=== PATIENT | male | born 1980 | race Caucasian/White ===

== ENCOUNTER 2016-05-25 17:54 | Emergency (ER) | payer OTHER | END 2016-05-25 19:40 | disposition left against medical advice (07) | LOC: ED 17:54 | DX: R10.9 Unspecified abdominal pain (principal); M54.9 Dorsalgia, unspecified; Z53.21 Procedure and treatment not carried out due to patient leaving prior to being seen by health care provider ==

== ENCOUNTER 2017-06-04 09:32 | Emergency (ER) | payer OTHER ==
[2017-06-04 10:23] LABS: Bilirubin,Urine NEG (Negative); Blood,Urine NEG (Negative); Color,Urine Yellow (Yellow); Protein,Urine <15 mg/dL mg/dL (Negative); Urobilinogen,Urine < 2.0 mg/dL (<2.0)
[2017-06-04 10:37] LABS: Basophils % (Auto) 0.4 % (0.0-1.8); Eosinophils # (Auto) 0.3 K/mm3 (0.0-0.4); Eosinophils % (Auto) 2.9 % (0.0-4.3); Hematocrit 46.8 % (35.5-45.6); Hemoglobin 16.4 gm/dl (11.8-15.2); Lymphocytes # (Auto) 2.8 K/mm3 (1.2-5.4); Lymphocytes % (Auto) 29.9 % (13.4-35.0); Mean Corpuscular HGB Conc 35 % (32-34); Mean Corpuscular Hemoglobin 31 pg (28-32); Mean Corpuscular Volume 87 fl (84-94); Monocytes # (Auto) 0.5 K/mm3 (0.0-0.8); Monocytes % (Auto) 5.7 % (0.0-7.3); Platelet Count 203 K/mm3 (140-440); Red Blood Count 5.36 M/mm3 (3.65-5.03)
[2017-06-04 10:58] LABS: Alanine Aminotransferase 76 units/L (7-56); Albumin 4.2 g/dL (3.9-5); BUN/Creatinine Ratio 11; Blood Urea Nitrogen 8 mg/dL (9-20); Calcium 9.4 mg/dL (8.4-10.2); Hemolysis Index 9; Lipase 222 units/L (13-60)
[2017-06-04] MEDS ORDERED: NACL 0.9% 1000 ML 1,000 ML IV ONE (11:10)
[2017-06-04] MEDS ORDERED: MORPHINE IV ONE (11:11)
[2017-06-04] MEDS ORDERED: ZOFRAN IV ONE (11:11)
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
[2017-06-04] MEDS ORDERED: NACL ONE (12:24)
--- NOTE | 2017-06-04 12:35 | Ultrasound Report ---
ULTRASOUND ABDOMEN LIMITED: TECHNIQUE: Transabdominal ultrasound with color Doppler interrogation. HISTORY: Abnormal liver function tests. COMPARISON: none. FINDINGS: LIVER: The liver is echogenic with attenuation of the ultrasound beam consistent with diffuse fatty infiltration. No obvious liver mass.. BILIARY SYSTEM: Normal. PANCREAS: Obscured. RIGHT KIDNEY: Normal. PROXIMAL AORTA: Normal. ASCITES: None. IMPRESSION: Hepatic steatosis.
--- NOTE | 2017-06-04 13:29 | Cat Scan Report ---
CT ABDOMEN PELVIS WITH CONTRAST: HISTORY: Epigastric pain. COMPARISON: none. TECHNIQUE: Helical CT in 1.25mm intervals following IV contrast. Sagittal and coronal reconstructions. FINDINGS: Lung bases: Normal. Liver: There is diffuse fatty infiltration of the liver parenchyma. No mass, surface nodularity or enlargement. Biliary system: Normal. Pancreas: Normal. Spleen: Normal. Kidneys/ureters/bladder: Normal. Adrenal glands: Normal. Aorta: Normal. Intestines: Normal. Appendix: Normal. Pelvic viscera: Normal. Ascites: None. Adenopathy: None. Musculoskeletal: Normal. IMPRESSION: No acute inflammatory process is identified. Hepatic steatosis.
[2017-06-04] MEDS ORDERED: NORCO 10/325 PO ONE (14:15)
[2017-06-04] MEDS ORDERED: ZOFRAN ODT PO ONE (14:15)
[2017-06-04] MEDS ORDERED: PEPCID PO ONE (14:16)
[2017-06-04] MEDS ORDERED: ALUM-MAG HYDROX-SIMETH 200-200-20MG/5ML PO ONE (14:16)
[2017-06-04] MEDS ORDERED: LIDOCAINE VISCOUS 2% PO ONE (14:16)
[2017-06-04 14:40] VITALS: BP 136/80
== END 2017-06-04 14:41 | disposition home or self-care (01) ==
LOC: ED 09:32
DX: R10.13 Epigastric pain (principal); R11.0 Nausea; M19.90 Unspecified osteoarthritis, unspecified site; F17.200 Nicotine dependence, unspecified, uncomplicated; G89.29 Other chronic pain; Z95.0 Presence of cardiac pacemaker
CPT/HCPCS: 36415; 74177; 76705; 80053; 81001; 82140; 82150; 83690; 84484; 85025; 87040; 93005; 93010; 96361; 96374; 96375; 99284; J2270; J2405; J7030; Q9967; Q0162

== ENCOUNTER 2018-04-12 20:43 | Emergency (ER) | payer OTHER ==
--- NOTE | 2018-04-12 21:05 | Emergency Department Report ---
Blank Doc - Documentation Documentation: 37 y.o. male presents to ER with left flank pain and BLE bruising x 1 week. Admits to urinary frequency and bilateral ankle pain with intermittent swelling Denies dysuria, penile discharge, or recent injury. Exam: CVA tenderness on left Labs ordered Fast Track for evaluation
[2018-04-12 21:43] LABS: Hematocrit 46.7 % (35.5-45.6); Hemoglobin 16.2 gm/dl (11.8-15.2); Mean Corpuscular HGB Conc 35 % (32-34); Mean Corpuscular Volume 87 fl (84-94); Platelet Count 218 K/mm3 (140-440); Red Blood Count 5.37 M/mm3 (3.65-5.03); Red Cell Distribution Width 13.4 % (13.2-15.2)
[2018-04-12 22:14] LABS: Bilirubin,Urine NEG (Negative); Blood,Urine NEG (Negative); Color,Urine Yellow (Yellow); Protein,Urine <15 mg/dL mg/dL (Negative); Urobilinogen,Urine < 2.0 mg/dL (<2.0)
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
[2018-04-13 01:19] VITALS: BP 130/82
== END 2018-04-13 01:18 | disposition home or self-care (01) ==
LOC: ED 20:43
DX: R10.9 Unspecified abdominal pain (principal); L03.116 Cellulitis of left lower limb; L03.115 Cellulitis of right lower limb; R35.0 Frequency of micturition; R39.15 Urgency of urination
CPT/HCPCS: 36415; 81001; 85027

== ENCOUNTER 2018-08-07 13:03 | Emergency (ER) | payer SELFPAY ==
--- NOTE | 2018-08-07 13:15 | Emergency Department Report ---
Blank Doc - Documentation Documentation: This is a 38-year-old male that presents with upper abdominal pain with radiat ion to bilateral flank area. Also stated has some nausea without any vomiting. Stated has a foul odor in urine as well. This initial assessment/diagnostic orders/clinical plan/treatment(s) is/are s ubject to change based on patient's health status, clinical progression and re- assessment by fellow clinical providers in the ED. Further treatment and workup at subsequent clinical providers discretion. Patient/guardians urged not to elope from the ED as their condition may be serious if not clinically assessed and managed. Initial orders include: 1- Patient sent to [facility] for further evaluation and treatment 2- UA 3- labs
[2018-08-07 13:47] LABS: Basophils % (Auto) 0.3 % (0.0-1.8); Eosinophils # (Auto) 0.3 K/mm3 (0.0-0.4); Eosinophils % (Auto) 3.9 % (0.0-4.3); Lymphocytes # (Auto) 2.6 K/mm3 (1.2-5.4); Lymphocytes % (Auto) 39.2 % (13.4-35.0); Mean Corpuscular HGB Conc 36 % (32-34); Mean Corpuscular Volume 88 fl (84-94); Monocytes # (Auto) 0.4 K/mm3 (0.0-0.8); Platelet Count 227 K/mm3 (140-440); Red Blood Count 5.67 M/mm3 (3.65-5.03); Red Cell Distribution Width 14.4 % (13.2-15.2)
[2018-08-07 13:48] LABS: Hematocrit 50.1 % (35.5-45.6)
[2018-08-07 13:51] LABS: Alanine Aminotransferase 8 units/L (7-56); Albumin 4.5 g/dL (3.9-5); BUN/Creatinine Ratio 8; Blood Urea Nitrogen 11 mg/dL (9-20); Hemolysis Index 14
[2018-08-07 14:37] LABS: Bilirubin,Urine NEG (Negative); Blood,Urine NEG (Negative); Color,Urine Yellow (Yellow); Mucus,Urine FEW /HPF; Protein,Urine <15 mg/dL mg/dL (Negative)
[2018-08-07] MEDS ORDERED: IBUPROFEN PO ONE (14:39)
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
--- NOTE | 2018-08-07 16:53 | Cat Scan Report ---
PROCEDURE: CT ABDOMEN PELVIS WO CON TECHNIQUE: Computerized axial tomography of the abdomen and pelvis was performed without intravenous contrast. This study is performed without intravascular contrast material and its sensitivity for ab dominal and pelvic pathology, including neoplasms, inflammation, abscess, free fluid, thrombosis, art erial dissection and infarction, is reduced compared with a contrast enhanced study. CT DOSE LENGTH PRODUCT: 2589 mGycm HISTORY: bilateral flank pain COMPARISONS: CT A/P 06/04/2017 . FINDINGS: Visualized lower thorax: No significant abnormality. Liver: Normal size and attenuation. Spleen: Normal size and attenuation. Gallbladder and biliary system: Normal. Pancreas: Normal. Adrenals: Normal. Kidneys: Normal. No evidence for renal calculi or hydronephrosis is seen. GI tract: Normal . Lymph nodes and mesentery: Normal. Vasculature: Normal.. Bladder: Nearly collapsed. Reproductive organs: Normal. Peritoneum: No free fluid. Musculoskeletal structures: No significant abnormality. Other: There is a tiny umbilical hernia containing only fat. IMPRESSION: No acute abnormality. Tiny umbilical hernia. This document is electronically signed by Sherley Rolon MD., August 07 2018 05:51:12 PM ET
[2018-08-07 17:11] VITALS: BP 125/79
== END 2018-08-07 17:11 | disposition home or self-care (01) ==
LOC: ED 13:03
DX: M54.9 Dorsalgia, unspecified (principal); R10.10 Upper abdominal pain, unspecified; M19.90 Unspecified osteoarthritis, unspecified site; F17.200 Nicotine dependence, unspecified, uncomplicated; Z95.0 Presence of cardiac pacemaker; Z98.890 Other specified postprocedural states
CPT/HCPCS: 36415; 74176; 80053; 81001; 85025; 87086

== ENCOUNTER 2020-09-30 16:06 | Emergency (ER) | payer SELFPAY ==
[~2020-09-30 16:06] MED LIST: AMIODARONE 150 MG/3 ML INJ IV ONE; EPINEPHrine 1 MG/10 ML SYRINGE ONE; SODIUM BICARB 8.4% 50 MEQ/50 ML SYRINGE IV ONE
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
== END 2020-09-30 18:30 ==
LOC: ED 16:06
DX: T59.811A Toxic effect of smoke, accidental (unintentional), initial encounter (principal); I46.9 Cardiac arrest, cause unspecified; F17.200 Nicotine dependence, unspecified, uncomplicated; M19.90 Unspecified osteoarthritis, unspecified site; Z79.899 Other long term (current) drug therapy; Z98.890 Other specified postprocedural states; X58.XXXA Exposure to other specified factors, initial encounter
CPT/HCPCS: 99285; J0171; J0282